=== PATIENT | female | born 1935 | race Caucasian/White ===

== ENCOUNTER → 2019-11-11 | Outpatient (CLI) | payer MEDICARE, BC ==
--- NOTE | 2019-11-11 17:05 | BD ---
EXAMINATION TYPE: Axial Bone Density DATE OF EXAM: 11/11/2019 COMPARISON: 2014 CLINICAL HISTORY: Height: 63 inches Weight: 133 FRAX RISK QUESTIONS: Alcohol (3 or more units per day): no Family History (Parent hip fracture): no Glucocorticoids (More than 3mos): no (Ex: prednisone, prednisolone, methylprednisolone, dexamethasone, and hydrocortisone). History of Fracture in Adulthood: yes Secondary Osteoporosis: 1. Type 1 Diabetes: no 2. Hyperthyroidism: unsure 3. Menopause before 45: no 4. Malnutrition: no 5. Chronic liver disease: no Rheumatoid Arthritis: no Current Tobacco Use: no RISK FACTORS HISTORY OF: Family History of Osteoporosis: unsure Active: yes Diet low in dairy products/other sources of calcium: somewhat Postmenopausal woman: yes Take estrogen and/or progesterone medications: no Lost more than 2 inches in height since high school: no Frequent falls: no Poor Health: no Hyperparathyroidism: no Adrenal Insufficiency: no MEDICATIONS: Prednisone or other steroids: no Thyroid Medications: yes Which medication: Levothyroxine How Long: since about 2013 Osteoporosis Medications: no Additional Medications: calcium , vitamin D, blood pressure meds, cholesterol med Additional History: history colon CA about 4 years ago EXAM MEASUREMENTS: Bone mineral densitometry was performed using the [employer]. Bone mineral density as measured about the Lumbar spine is: ----- L1-L4(G/cm2): 0.999 T Score Values are as follows: ----- L2: -2.0 ----- L3: -1.5 ----- L4: -1.1 ----- L1-L4: -1.5 Bone mineral density has: Decreased -7.7% since study of: 01/18/2015 Bone mineral density about the R hip (g/cm2): 0.918 Bone mineral density about the L hip (g/cm2): 0.768 T Score values are as follows: -----R Neck: -0.9 -----L Neck: -1.9 -----R Total: -1.7 -----L Total: -2.0 Bone mineral density has: Decreased -8.2% since study of: 01/18/2015 IMPRESSION: Osteopenia (T Score between -2.5 and -1). There is slightly increased risk of fracture and the patient may be considered for treatment. Re-Screen 2-5 years. NOTE: T-SCORE=SD OF THE YOUNG ADULT MEAN.
== END | disposition home or self-care (01) ==
LOC: RADBDWWP 12:29
PROVIDERS: ATTEND Internal Medicine
DX: M85.80 Other specified disorders of bone density and structure, unspecified site (principal)
CPT/HCPCS: 77080

== ENCOUNTER 2022-10-07 17:47 | Inpatient (IN) | payer MEDICARE, BC ==
--- NOTE | 2022-10-07 20:35 | ED ---
Back Pain [facility] - General Chief Complaint: Back Pain/Injury Stated Complaint: Back Pain Time Seen by Provider: 10/07/22 20:19 Source: patient, family, RN notes reviewed, old records reviewed Limitations: no limitations - History of Present Illness Initial Comments: This is a nontoxic-appearing 87-year-old female, alert and oriented 4, presents to the emergency room with family complaining of worsening lower back pain and inability to ambulate. Patient states back pain started in August and she has seen her doctor. She is currently on a steroid taper. She also seen orthopedic associates this week Saturday had x-rays, told degenerative disc disease. Family states that today she is having increased pain and unable to walk or stand. She is having urge incontinence. Denies any bowel incontinence. No fevers. No falls, trauma or injury. She does have a history of hypertension, and osteopenia. MD Complaint: back pain -: month(s) (3) Similar Symptoms Previously: Yes Radiation: none Severity scale (1-10): 8 Quality: aching Consistency: constant Improves With: none Worsens With: walking Associated Symptoms: denies other symptoms Treatments Prior to Arrival: other (X-ray and steroids) - Related Data Home Medications Medication Instructions Recorded Confirmed Ascorbic Acid [Vitamin C] 500 mg PO DAILY 01/12/16 10/07/22 Calcium Carbonate/Vitamin D3 1 tab PO DAILY 01/12/16 10/07/22 [Calcium 600 + Vit D Tablet] Enalapril/Hydrochlorothiazide 1 tab PO DAILY 01/12/16 10/07/22 [Vaseretic 10-25 mg] Levothyroxine Sodium [Synthroid] 25 mcg PO DAILY 01/12/16 10/07/22 Potassium Chloride ER [K-Dur 10] 10 meq PO BID-W/MEALS 01/12/16 10/07/22 Pravastatin Sodium [Pravachol] 40 mg PO DAILY 01/12/16 10/07/22 Verapamil HCl [Verapamil ER] 240 mg PO DAILY 01/12/16 10/07/22 Cholecalciferol [Vitamin D3 (25 50 mcg PO DAILY 10/07/22 10/07/22 Mcg = 1000 Iu)] methylPREDNISolone [Medrol Dose See Taper PO DIRECTED 10/07/22 10/07/22 Pack] Allergies Allergy/AdvReac Type Severity Reaction Status Date / Time No Known Allergies Allergy Verified 10/07/22 21:35 Review of Systems ROS Statement: Those systems with pertinent positive or pertinent negative responses have been documented in the HPI. ROS Other: All systems not noted in ROS Statement are negative. Past Medical History Past Medical History: GERD/Reflux, Hyperlipidemia, Hypertension, Skin Disorder, Thyroid Disorder Additional Past Medical History / Comment(s): anemia, occ "fast heartbeat", psoriasis, History of Any Multi-Drug Resistant Organisms: None Reported Past Surgical History: Breast Surgery, Tubal Ligation Additional Past Surgical History / Comment(s): breast biopsy x 2, yolie cataracts Past Anesthesia/Blood Transfusion Reactions: No Reported Reaction Past Psychological History: No Psychological Hx Reported Smoking Status: Never smoker Past Alcohol Use History: Daily Past Drug Use History: None Reported - Past Family History Mother Family Medical History: No Reported History General Exam Limitations: no limitations General appearance: alert, in no apparent distress Head exam: Present: atraumatic Eye exam: Absent: scleral icterus, conjunctival injection, periorbital swelling Neck exam: Present: full ROM. Absent: tenderness, meningismus Respiratory exam: Absent: respiratory distress, accessory muscle use Cardiovascular Exam: Present: regular rate GI/Abdominal exam: Present: soft. Absent: distended, rigid Extremities exam: Present: full ROM, normal capillary refill. Absent: tender ness, pedal edema, joint swelling, calf tenderness Back exam: Present: tenderness (Lumbar sacral), paraspinal tenderness (Lumbar sacral), other (Patient is able to stand but unable to take a step without assistance). Absent: CVA tenderness (R), CVA tenderness (L), rash noted Neurological exam: Present: alert, oriented X3 Psychiatric exam: Present: normal affect, normal mood Skin exam: Present: warm, dry. Absent: cyanosis, diaphoretic, petechiae, pallor Course Vital Signs 10/07/22 10/07/22 10/07/22 17:56 22:15 23:12 Temperature 98 F 97.5 F L Pulse Rate 71 66 65 Respiratory 20 16 18 Rate Blood Pressure 196/97 186/85 170/90 O2 Sat by Pulse 96 95 96 Oximetry Medical Decision Making - Medical Decision Making She states had an x-ray this week Saturday that showed no evidence of fracture or degenerative disc disease per family. She does have osteopenia. She has bee n unable to ambulate today. Per family having difficulty standing and bearing her own weight. No recent falls. Sensation is intact. She does have full range of motion lower extremities. Pain with palpation of the sacrum. CT lumbar sacral spine interpreted by me shows no acute fracture. Radiologist interpretation is bilateral nondisplaced sacral fractures. No evidence of a lumbar spine fracture. Minimal degenerative first degree L4-L5 spondylolisthesis. No lumbar compression fracture. No lumbar paraspinal mass. Labs show leukocytosis however patient is on steroids. Urinalysis shows 52 white blood cells with occasional bacteria, negative for leukocyte esterase or nitrites. Patient has no dysuria will await culture to treat. Patient was given morphine for pain. No concern for cauda equina She will be admitted to Dr. Meadows with orthopedics placed on consult. Patient is agreeable to this plan of care. Vital signs are stable. Case discussed with Dr. Ojeda - Lab Data Result diagrams: 10/07/22 21:48 10/07/22 21:48 Lab Results 10/07/22 10/07/22 10/07/22 Range/Units 21:48 21:48 22:04 WBC 16.2 H (3.8-10.6) k/uL RBC 4.56 (3.80-5.40) m/uL Hgb 14.5 (11.4-16.0) gm/dL Hct 42.0 (34.0-46.0) % MCV 92.1 (80.0-100.0) fL MCH 31.9 (25.0-35.0) pg MCHC 34.6 (31.0-37.0) g/dL RDW 12.7 (11.5-15.5) % Plt Count 404 (150-450) k/uL MPV 6.9 Neutrophils % 85 % Lymphocytes % 7 % Monocytes % 7 % Eosinophils % 1 % Basophils % 0 % Neutrophils # 13.7 H (1.3-7.7) k/uL Lymphocytes # 1.1 (1.0-4.8) k/uL Monocytes # 1.1 H (0-1.0) k/uL Eosinophils # 0.1 (0-0.7) k/uL Basophils # 0.0 (0-0.2) k/uL Sodium 131 L (137-145) mmol/L Potassium 4.8 (3.5-5.1) mmol/L Chloride 96 L (98-107) mmol/L Carbon Dioxide 28 (22-30) mmol/L Anion Gap 7 mmol/L BUN 23 H (7-17) mg/dL Creatinine 0.65 (0.52-1.04) mg/dL Est GFR (CKD-EPI)AfAm >90 (>60 ml/min/1.73 sqM) Est GFR (CKD-EPI)NonAf 80 (>60 ml/min/1.73 sqM) Glucose 129 H (74-99) mg/dL Calcium 9.6 (8.4-10.2) mg/dL Total Bilirubin 0.8 (0.2-1.3) mg/dL AST 33 (14-36) U/L ALT 23 (4-34) U/L Alkaline Phosphatase 177 H (38-126) U/L Total Protein 8.2 (6.3-8.2) g/dL Albumin 4.5 (3.5-5.0) g/dL Urine Color Light Yellow Urine Appearance Cloudy H (Clear) Urine pH 7.0 (5.0-8.0) Ur Specific [place] 1.015 (1.001-1.035) Urine Protein Trace H (Negative) Urine Glucose (UA) Negative (Negative) Urine Ketones Negative (Negative) Urine Blood Negative (Negative) Urine Nitrite Negative (Negative) Urine Bilirubin Negative (Negative) Urine Urobilinogen <2.0 (<2.0) mg/dL Ur Leukocyte Esterase Negative (Negative) Urine RBC >182 H (0-5) /hpf Urine WBC 52 H (0-5) /hpf Ur Squamous Epith Cells 2 (0-4) /hpf Urine Bacteria Occasional H (None) /hpf Urine Mucus Rare H (None) /hpf Disposition Clinical Impression: Inability to walk, Sacral fracture Narrative: Bilateral nondisplaced sacral fractures Disposition: ADMITTED IP TO THIS [facility] Referrals: Lamar Meadows MD [Primary Care Provider] - 1-2 days Decision Date: 10/07/22 Decision Time: 22:50
[2022-10-07] MEDS ORDERED: SODIUM CHLORIDE 0.9% 500 ML 500 ML IV STA (20:44)
[2022-10-07] MEDS ORDERED: MORPHINE SULFATE 4 MG/ML SYRINGE IV STA (20:44)
[2022-10-07 21:56] LABS: Basophils % (A) 0 %; Eosinophils # (A) 0.1 k/uL (0-0.7); Eosinophils % (A) 1 %; HGB 14.5 gm/dL (11.4-16.0); Lymphocytes # (A) 1.1 k/uL (1.0-4.8); Lymphocytes % (A) 7 %; MCH 31.9 pg (25.0-35.0); MCHC 34.6 g/dL (31.0-37.0); MCV 92.1 fL (80.0-100.0); Mean Platelet Volume 6.9; Monocytes # (A) 1.1 k/uL (0-1.0); Monocytes % (A) 7 %; Neutrophils # (A) 13.7 k/uL (1.3-7.7); Neutrophils % (A) 85 %; Platelet Count 404 k/uL (150-450); RBC 4.56 m/uL (3.80-5.40); RDW 12.7 % (11.5-15.5); WBC 16.2 k/uL (3.8-10.6)
[2022-10-07 22:17] LABS: ALT 23 U/L (4-34); AST 33 U/L (14-36); African American GFR (CKD) >90 (>60 ml/min/1.73 sqM); Albumin 4.5 g/dL (3.5-5.0); Alkaline Phosphatase 177 U/L (38-126); Anion Gap 7 mmol/L; Blood Urea Nitrogen 23 mg/dL (7-17); Calcium 9.6 mg/dL (8.4-10.2); Carbon Dioxide 28 mmol/L (22-30); Chloride 96 mmol/L (98-107); Glucose 129 mg/dL (74-99); Non-African American GFR(CKD) 80 (>60 ml/min/1.73 sqM); Sodium 131 mmol/L (137-145); Total Bilirubin 0.8 mg/dL (0.2-1.3); Total Protein 8.2 g/dL (6.3-8.2)
[2022-10-07 22:23] LABS: Potassium 4.8 mmol/L (3.5-5.1)
[2022-10-07 22:35] LABS: Appearance,Urine Cloudy (Clear); Bacteria,Urine Occasional /hpf; Bilirubin,Urine Negative (Negative); Blood,Urine Negative (Negative); Color,Urine Light Yellow; Glucose,Urine (UA) Negative (Negative); Ketones,Urine Negative (Negative); Leukocyte Esterase,Urine Negative (Negative); Mucus,Urine Rare /hpf; Nitrite,Urine Negative (Negative); Protein,Urine Trace (Negative); RBC,Urine >182 /hpf (0-5); Specific Gravity,Urine 1.015 (1.001-1.035); Squamous Epithelial Cell,Urine 2 /hpf (0-4); Urobilinogen,Urine <2.0 mg/dL (<2.0); WBC,Urine 52 /hpf (0-5)
--- NOTE | 2022-10-07 22:35 | CT ---
EXAMINATION TYPE: CT lumbar spine wo con DATE OF EXAM: 10/07/2022 COMPARISON: None HISTORY: back pain CT DLP: 595.9 mGycm Automated exposure control for dose reduction was used. Images obtained from T12 to S1 vertebra with no contrast. The lumbar vertebrae have fairly normal alignment. There is a minimal degenerative first degree L4-5 spondylolisthesis. Facet joints are intact. No lumbar compression fracture. Abdominal aorta is athero matous. No lumbar paraspinal mass. There are bilateral nondisplaced fractures of the lateral mass of the sacrum. There is a minimal sclerosis and these are consistent with healing fractures. Sacroiliac joint spaces are not widened. IMPRESSION: Bilateral nondisplaced sacral fractures. No evidence of a lumbar spine fracture.
[2022-10-07] MEDS ORDERED: NALOXONE 0.4 MG/ML 1 ML VIAL IV PRN (22:50)
[2022-10-08] MEDS: LEVOTHYROXINE 25 MCG TAB PO SCH (08:39)
[2022-10-08] MEDS: POTASSIUM CHLORIDE ER 10 MEQ TAB.ER.PRT PO SCH ×2 (08:39→16:55)
[2022-10-08] MEDS ORDERED: hydroCHLOROthiazide 25 MG TAB PO SCH (09:00)
[2022-10-08] MEDS: CALCIUM CARB-VIT D 500 MG-5 MCG TAB PO SCH (09:51)
[2022-10-08] MEDS: PRAVASTATIN SODIUM 40 MG TAB PO SCH (09:51)
[2022-10-08] MEDS: CHOLECALCIFEROL 25 MCG (1000 IU) TABLET PO SCH (09:51)
[2022-10-08] MEDS: ASCORBIC ACID 500 MG TAB PO SCH (09:52)
[2022-10-08] MEDS: VERAPAMIL SR 240 MG TABLET.ER PO SCH (09:52)
[2022-10-08] MEDS: lisinopriL 20 MG TAB PO SCH (09:52)
[2022-10-08] MEDS: hydroCHLOROthiazide 25 MG TAB PO SCH (10:29)
--- NOTE | 2022-10-08 13:49 | P.CNOR ---
History of Present Illness - [facility] Consult date: 10/08/22 History of present illness: This patient is an 87- year old female with a past medical history of hypertension, hyperlipidemia, GERD that presented to [facility] emergency department yesterday with complaints of increasing low back pain. The patient states there is no injury or falls. She has been experiencing progressive low back pain for about a month. She was recently evaluated at our office by Alejandro Herrera PA-C, x-rays were taken and the patient was placed on the oral steroid taper. The patient states that this steroid taper did not help her pain. Her pain continued over the past few days, therefore brought the patient to the emergency department. CT of the lumbar spine in the emergency department revealed bilateral nondisplaced sacral fractures. The patient was admitted to the care of Dr. Meadows, with a consult placed to orthopedic surgery. The patient was evaluated at bedside in the emergency department this morning. Her is bedside. Patient states she is experiencing moderate pain with any movement or attempted ambulation. She localizes the pain to the low back. She does have tingling in her toes, although this is chronic, patient states she does have neuropathy. Denies new numbness. She is experiencing urge incontinence, no bowel incontinence. No additional complaints. Past Medical History Past Medical History: GERD/Reflux, Hyperlipidemia, Hypertension, Skin Disorder, Thyroid Disorder Additional Past Medical History / Comment(s): anemia, occ "fast heartbeat", psoriasis, History of Any Multi-Drug Resistant Organisms: None Reported Past Surgical History: Breast Surgery, Tubal Ligation Additional Past Surgical History / Comment(s): breast biopsy x 2, yolie cataracts Past Anesthesia/Blood Transfusion Reactions: No Reported Reaction Past Psychological History: No Psychological Hx Reported Smoking Status: Never smoker Past Alcohol Use History: Daily Past Drug Use History: None Reported - Past Family History Mother Family Medical History: No Reported History Medications and Allergies Home Medications Medication Instructions Recorded Confirmed Type Ascorbic Acid [Vitamin C] 500 mg PO DAILY 01/12/16 10/07/22 History Calcium Carbonate/Vitamin D3 1 tab PO DAILY 01/12/16 10/07/22 History [Calcium 600 + Vit D Tablet] Enalapril/Hydrochlorothiazide 1 tab PO DAILY 01/12/16 10/07/22 History [Vaseretic 10-25 mg] Levothyroxine Sodium [Synthroid] 25 mcg PO DAILY 01/12/16 10/07/22 History Potassium Chloride ER [K-Dur 10] 10 meq PO BID-W/MEALS 01/12/16 10/07/22 History Pravastatin Sodium [Pravachol] 40 mg PO DAILY 01/12/16 10/07/22 History Verapamil HCl [Verapamil ER] 240 mg PO DAILY 01/12/16 10/07/22 History Cholecalciferol [Vitamin D3 (25 50 mcg PO DAILY 10/07/22 10/07/22 History Mcg = 1000 Iu)] methylPREDNISolone [Medrol Dose See Taper PO DIRECTED 10/07/22 10/07/22 History Pack] Allergies Allergy/AdvReac Type Severity Reaction Status Date / Time No Known Allergies Allergy Verified 10/07/22 21:35 Physical Examination On examination, patient is sitting up on the gurney in no apparent distress. She is alert and oriented 3. Her head appears normocephalic and atraumatic. Her breathing appears nonlabored. On inspection of her bilateral upper extremities, there are no obvious deformities or signs of trauma. On inspection of her bilateral lower extremities, no obvious deformities or signs of trauma. There is no pain with passive range of motion of the bilateral hips. Motor and sensory function is intact of the bilateral lower extremities. She has good strength and range of motion of her bilateral ankles and toes. Bilateral lower extremities warm and well perfused. Patient refuses back examination due to pain at this time. Results CT lumbar spine 10/07/22 reviewed. - Labs Labs: Abnormal Lab Results - Last 24 Hours (Table) 10/07/22 10/07/22 10/07/22 Range/Units 21:48 21:48 22:04 WBC 16.2 H (3.8-10.6) k/uL Neutrophils # 13.7 H (1.3-7.7) k/uL Monocytes # 1.1 H (0-1.0) k/uL Sodium 131 L (137-145) mmol/L Chloride 96 L (98-107) mmol/L BUN 23 H (7-17) mg/dL Glucose 129 H (74-99) mg/dL Alkaline Phosphatase 177 H (38-126) U/L Urine Appearance Cloudy H (Clear) Urine Protein Trace H (Negative) Urine RBC >182 H (0-5) /hpf Urine WBC 52 H (0-5) /hpf Urine Bacteria Occasional H (None) /hpf Urine Mucus Rare H (None) /hpf Microbiology - Last 24 Hours (Table) 10/07/22 22:04 Urine Culture - Preliminary Urine,Voided H & H 10/07/22 Range/Units 21:48 Hgb 14.5 (11.4-16.0) gm/dL Hct 42.0 (34.0-46.0) % Result Diagrams: 10/07/22 21:48 10/07/22 21:48 Assessment and Plan Assessment: Bilateral non-displaced sacral fractures Plan: - The clinical and imaging findings were discussed with the patient. The patient was discussed with Dr. Masterson. No surgical intervention is recommended at this time. Patient should remain non-weight bearing on bilateral lower extremities except for transfers. Recommend evaluation by physical therapy for transfers. - Pain management as needed. - Medical management per primary team. - We will follow patient closely as she remains inpatient and make recommendations as needed.
[2022-10-08] MEDS: ALPRAZolam 0.25 MG TAB PO PRN (15:30)
[2022-10-08] MEDS: oxyCODONE-APAP 5-325MG 1 EACH TAB PO PRN (16:55)
[2022-10-08] MEDS: DOCUSATE 100 MG CAP PO SCH (21:34)
[2022-10-09] MEDS: LEVOTHYROXINE 25 MCG TAB PO SCH (06:50)
[2022-10-09] MEDS: CALCIUM CARB-VIT D 500 MG-5 MCG TAB PO SCH (08:50)
[2022-10-09] MEDS: ENOXAPARIN 40 MG/0.4 ML SYRINGE SQ SCH (08:50)
[2022-10-09] MEDS: DOCUSATE 100 MG CAP PO SCH ×2 (08:50→21:27)
[2022-10-09] MEDS: ASCORBIC ACID 500 MG TAB PO SCH (08:50)
[2022-10-09] MEDS: CHOLECALCIFEROL 25 MCG (1000 IU) TABLET PO SCH (08:50)
[2022-10-09] MEDS: lisinopriL 20 MG TAB PO SCH (08:50)
[2022-10-09] MEDS: VERAPAMIL SR 240 MG TABLET.ER PO SCH (08:51)
[2022-10-09] MEDS: polyethylene glycoL 3350 17 GM POWD.PACK PO SCH (08:51)
[2022-10-09] MEDS: hydroCHLOROthiazide 25 MG TAB PO SCH (08:51)
[2022-10-09] MEDS: POTASSIUM CHLORIDE ER 10 MEQ TAB.ER.PRT PO SCH ×2 (08:51→18:06)
--- NOTE | 2022-10-09 12:51 | P.PN ---
Progress Note - Text Progress Note Date: 10/09/22 Orthopedic spine: History of present illness: Patient is a very pleasant 87-year-old female who is seen and examined at bedside for follow up evaluation for her known bilateral sacral fractures. She is currently sitting in a bedside chair. Her pain is currently medically controlled. Her pain has been controlled at rest. She does admit to lumbosacral pain with increased activities. She has had difficulty with mobilization. She has been able to utilize a walker with transfers. She denies any lower extremity radiculopathy or specific weakness bilaterally. She states approximately 3-4 weeks ago her purse fell off of her shoulder, which was heavy, and she quickly jerked to get it. She is unsure if he specifically caused her pain but states her pain has been ongoing since that time. She is currently admitted to medicine with plans for discharge to a rehabilitation facility at the time of discharge. Patient's other medical diagnoses include hyperlipidemia, hypertension, thyroid disorder. Physical exam: Patient is awake, alert, and oriented 3 Vital signs stable Good chest excursion with deep inspiration and expiration Examination of lumbosacral spine reveals skin is intact with no abrasions, lacerations, or bruises; no erythema, purulence or signs of infection Pain with palpation bilaterally over the proximal sacrum Dorsiflexion, plantarflexion, and extensor hallucis longus positive sustained bilaterally No signs or symptoms of DVT; no calf pain No pain with internal and external rotation of the hips bilaterally Neurovascularly intact Pertinent studies: CT of the lumbar spine taken on 10/07/2022: Evidence of bilateral nondisplaced fractures of the lateral mass of the sacrum with minimal sclerosis consistent with healing fracture; L4-5 slight spondylolisthesis; no vertebral body compression fracture Assessment: Bilateral nondisplaced sacral fractures Lumbosacral pain L4-5 slight spondylolisthesis Difficulty with mobilization due to sacral pain Hyperlipidemia Hypertension Thyroid disorder Plan: 1. We will currently planned to continue conservative treatment options in regards to her bilateral nondisplaced sacral fractures. Patient does continue to have pain at her fracture sites of the sacrum. At this time she should continue to remain nonweightbearing on the bilateral lower extremities except for transfers. We did discuss we're not planning for surgical intervention. We did discuss these fractures should heal with time. She may work with physical therapy for transfers. She may continue his medications as prescribed as needed for pain control. These pain medications are being managed by medicine. From an orthopedic spine standpoint, patient is clear for discharge. Patient may follow-up with José Miguel Cisneros PA-C or Dr. Jose Masterson at [facility] in 2-3 weeks following discharge. 2. Patient will continue to be seen and examined by medicine for her other medical diagnoses as well
[2022-10-09] MEDS: PRAVASTATIN SODIUM 40 MG TAB PO SCH (16:10)
[2022-10-09] MEDS: SODIUM CHLORIDE 0.9% 1,000 ML IV SCH (16:22)
[2022-10-09] MEDS: oxyCODONE-APAP 5-325MG 1 EACH TAB PO PRN (18:10)
[2022-10-10] MEDS: LEVOTHYROXINE 25 MCG TAB PO SCH (05:44)
[2022-10-10] MEDS: DOCUSATE 100 MG CAP PO SCH (08:28)
[2022-10-10] MEDS: ASCORBIC ACID 500 MG TAB PO SCH (08:28)
[2022-10-10] MEDS: CALCIUM CARB-VIT D 500 MG-5 MCG TAB PO SCH (08:28)
[2022-10-10] MEDS: polyethylene glycoL 3350 17 GM POWD.PACK PO SCH (08:28)
[2022-10-10] MEDS: lisinopriL 20 MG TAB PO SCH (08:28)
[2022-10-10] MEDS: hydroCHLOROthiazide 25 MG TAB PO SCH (08:28)
[2022-10-10] MEDS: PRAVASTATIN SODIUM 40 MG TAB PO SCH (08:28)
[2022-10-10] MEDS: POTASSIUM CHLORIDE ER 10 MEQ TAB.ER.PRT PO SCH ×2 (08:28→17:49)
[2022-10-10] MEDS: VERAPAMIL SR 240 MG TABLET.ER PO SCH (08:29)
[2022-10-10] MEDS: ENOXAPARIN 40 MG/0.4 ML SYRINGE SQ SCH (08:29)
[2022-10-10] MEDS: oxyCODONE-APAP 5-325MG 1 EACH TAB PO PRN ×2 (08:29→16:30)
[2022-10-10] MEDS: CHOLECALCIFEROL 25 MCG (1000 IU) TABLET PO SCH (08:29)
[2022-10-10 08:56] LABS: HCT 39.4 % (37.2-46.3); HGB 13.2 g/dL (12.0-15.0); MCH 31.6 pg (27.0-32.0); MCHC 33.5 g/dL (32.0-37.0); MCV 94.3 fL (80.0-97.0); Mean Platelet Volume 9.3 fL (9.5-12.2); NRBC Per 100 WBC 0 /100 WBCS (0.0-0.0); Platelet Count 366 X 10*3/uL (140-440); RBC 4.18 X 10*6/uL (4.10-5.20); RDW 12.8 % (11.5-14.5); WBC 10.72 X 10*3/uL (4.50-10.00)
[2022-10-10 09:19] LABS: African American GFR (CKD) 66.6 (60.0-200.0); Albumin 3.2 g/dL (3.8-4.9); Albumin/Globulin Ratio 1.23 (1.60-3.17); Anion Gap 8.6 mmol/L (10.00-18.00); BUN/Creat Ratio 24.67 Ratio (12.00-20.00); Blood Urea Nitrogen 22.2 mg/dL (9.0-27.0); Calcium 8.9 mg/dL (8.7-10.3); Carbon Dioxide 26.4 mmol/L (20.0-27.5); Globulin 2.6 g/dL (1.6-3.3); Non-African American GFR(CKD) 57.5 (60.0-200.0); Potassium 3.9 mmol/L (3.5-5.5); Total Bilirubin 0.6 mg/dL (0.30-1.20); Total Protein 5.8 g/dL (6.2-8.2)
[2022-10-10 11:59] VITALS: BP 144/78; PULSE 74; RESP 16; TEMP 97.3
[2022-10-10] MEDS: SODIUM CHLORIDE 0.9% 1,000 ML IV SCH (12:40)
[2022-10-10] MEDS: ALPRAZolam 0.25 MG TAB PO PRN (14:36)
--- NOTE | 2022-10-10 15:41 | P.HPIM ---
History of Present Illness H&P Date: 10/08/22 Chief Complaint: Sacral fracture inability to ambulate. HISTORY OF PRESENT ILLNESS: This is a 87-year-old female with a previous medical history significant for hypertension and hypertensive cardio vascular disease, hyperlipidemia, hypothyroidism, history of osteopenia, history of colon cancer, constipation, anxiety, hyperbilirubinemia, patient presented to the emergency department at [facility] because of increased lower back pain associated with inability day bleed and carries her activities of daily living, [facility], she has been given Medrol Dosepak without any relief of her pain, patient ended up coming to the ER for evaluation had an x-ray that did show evidence of bilateral nondisplaced sacral fracture she was seen in consultation by with katrin chris surgery was recommended for the patient be transferred to subacute Rehabilitation and she was started on Percocet for pain control. While she was in the hospital she was found to have elevated leukocyte in the urine, without evidence of urinary tract infection she was started on IV antibiotic in the form of Rocephin. ,REVIEW OF SYSTEMS: Constitutional: No documented fever, no chills, no night sweats. No weight change. No weakness, fatigue or lethargy. No daytime sleepiness. HEENT: No headache. No blurred vision or double vision, no loss of vision. No loss of Hearing, no ringing in the ears, no dizziness. No nasal drainage or co ngestion. No epistaxis. No sore throat. Lungs: No shortness of breath, no cough, no sputum production. No wheezing. Reports dyspnea with activity. Cardiovascular: No chest pain, no lower extremity edema. No palpitations. No paroxysmal nocturnal dyspnea. No orthopnea. No lightheadedness or dizziness. No syncopal episodes. Abdominal: Reports abdominal pain. No nausea, vomiting. No diarrhea. No constipation. No bloody or tarry stools reports loss of appetite. Genitourinary: No dysuria, increased frequency, urgency. No urinary retention. Musculoskeletal: No myalgias. positive for muscle weakness, positive for gait dysfunction, no frequent falls. positive for back pain. No neck pain. Integumentary: No wounds, no lesions. No rash or pruritus. No unusual bruising. No change in hair or nails. Neurologic: No aphasia. No facial droop. No change in mentation. No head injury. No headache. No paralysis. No paresthesia. Psychiatric: No depression. No anxiety. No mood swings. Endocrine: No abnormal blood sugars. No weight change. PAST MEDICAL HISTORY: Hypertension and hypertensive cardiovascular disease Hyperlipidemia. Hypothyroidism. Colon cancer. Hyperbilirubinemia. Osteoarthritis. Constipation. PAST SURGICAL HISTORY: right hemicolectomy February 2016 Colonoscopy 01/13/2016 Bilateral cataract surgery Breast biopsies 2. SOCIAL HISTORY: patient used to smoke about pack every day since she was 18-year-old and quit 25 years ago, she denies any alcohol ingestion, no drug abuse. She lives with her . FAMILY HISTORY: Father at age of 85 from old age, mother at age of 73 from angina and diabetes, patient had 4 brothers all one from prostate cancer to had CABG and 1 thoracic aortic aneurysm along with diabetes and gout along with Alzheimer dementia, patient has 3 sisters one of an no cause the other one is alive with heart failure patient has 2 sons alive and well, patient has one daughter alive and well PHYSICAL EXAMINATION: General: 87-year-old female laying down in bed in no apparent distress except for a back pain. HEENT: Head is atraumatic, normocephalic, pupils were equal round reactive to li ght and recommendation, extraocular muscle movement were intact, sclera nonicteric, conjunctivae were pale, mucous membranes of the mouth are somewhat dry. Neck: Supple, no JVP, normal carotid upstroke bilaterally, no lymphadenopathy. Chest: Decreased breath sounds at the bases, few rhonchi, no expiratory wheezes, no chest wall tenderness, no intercostal retractions. Heart: First heart sound is normal, second heart sounds normal there is systolic ejection murmur 2/6 located in the left sternal border. Abdomen: Soft, nontender, nondistended, positive bowel sounds, no hepatosplenomegaly. Extremities: There is no edema no calf tenderness DP +2 bilaterally. Neurologic examination: Patient is awake alert and oriented X3 cranial nerves II-12 appear grossly intact, muscle power were 5 out of 5 in upper extremities and 3 out of 5 in bilateral lower extremities, deep tendon reflexes normal yolie aterally. ASSESSMENT AND PLAN: 1. Bilateral nondisplaced sacral fracture. Continue current pain management, continue physical therapy and occupational therapy evaluation, orthopedic surgery consultation appreciated, patient will need to go to extended care facility for subacute rehabilitation as the patient is not able to carry her activities of daily living. 2. Possible UTI. Send the urine for culture, start the patient on Rocephin 1 g IV piggyback every 24 hours per he 3. Hypertension and hypertensive cardiovascular disease. Continue patient on verapamil 240 mg once every day, continue lisinopril 20 mg once every day, continue hydrochlorothiazide 25 mg once every day, monitor the patient blood pressure very closely. 4. Hyperlipidemia. Continue low-cholesterol diet, continue pravastatin 40 mg at bedtime, monitor the patient lipid panel, keep LDL 55-70. 5. Hypothyroidism. Continue Synthroid 25 g orally once every day, monitor the patient TSH and free T4 as an outpatient. 6. History of colon cancer status post right colectomy colectomy back in 2016. 7. Osteoarthritis. Continue with current pain management. 8. Constipation. Continue with current bowel care. 9. DVT prophylaxis. Lovenox 40 mg subcutaneously every 24 hours. 10. GI prophylaxis. Continue with Protonix 40 mg once every day. 11. Admitted to inpatient. Estimate a length of stay 2 midnights. 12. Full code. Past Medical History Past Medical History: GERD/Reflux, Hyperlipidemia, Hypertension, Skin Disorder, Thyroid Disorder Additional Past Medical History / Comment(s): anemia, occ "fast heartbeat", psoriasis, History of Any Multi-Drug Resistant Organisms: None Reported Past Surgical History: Breast Surgery, Tubal Ligation Additional Past Surgical History / Comment(s): breast biopsy x 2, yolie cataracts Past Anesthesia/Blood Transfusion Reactions: No Reported Reaction Past Psychological History: No Psychological Hx Reported Smoking Status: Never smoker Past Alcohol Use History: Daily Past Drug Use History: None Reported - Past Family History Mother Family Medical History: No Reported History Medications and Allergies Home Medications Medication Instructions Recorded Confirmed Type Ascorbic Acid [Vitamin C] 500 mg PO DAILY 01/12/16 10/07/22 History Calcium Carbonate/Vitamin D3 1 tab PO DAILY 01/12/16 10/07/22 History [Calcium 600-Vit D3 400 Tablet] Enalapril/Hydrochlorothiazide 1 tab PO DAILY 01/12/16 10/07/22 History [Vaseretic 10-25 mg] Levothyroxine Sodium [Synthroid] 25 mcg PO DAILY 01/12/16 10/07/22 History Potassium Chloride ER [K-Dur 10] 10 meq PO BID-W/MEALS 01/12/16 10/07/22 History Pravastatin Sodium [Pravachol] 40 mg PO DAILY 01/12/16 10/07/22 History Verapamil HCl [Verapamil ER] 240 mg PO DAILY 01/12/16 10/07/22 History Cholecalciferol [Vitamin D3 (25 50 mcg PO DAILY 10/07/22 10/07/22 History Mcg = 1000 Iu)] ALPRAZolam [Xanax] 0.25 mg PO BID PRN #6 tab 10/09/22 Rx Docusate [Colace] 100 mg PO BID cap 10/09/22 Rx oxyCODONE-APAP 5-325MG [Percocet 1 each PO Q6HR PRN #12 tab 10/09/22 Rx 5-325 mg] polyethylene glycoL 3350 [Miralax] 17 gm PO DAILY packet 10/09/22 Rx Enoxaparin [Lovenox] 40 mg SQ DAILY each 10/10/22 Rx Allergies Allergy/AdvReac Type Severity Reaction Status Date / Time No Known Allergies Allergy Verified 10/07/22 21:35 Physical Exam Vitals: Vital Signs Temp Pulse Resp BP Pulse Ox 10/08/22 04:00 97.8 F 68 18 134/79 95 10/08/22 00:00 97.9 F 61 16 159/62 95 10/07/22 23:12 65 18 170/90 96 10/07/22 22:15 97.5 F L 66 16 186/85 95 10/07/22 17:56 98 F 71 20 196/97 96 Intake and Output 10/07/22 10/08/22 10/08/22 22:59 06:59 14:59 Other: Weight 58.967 kg Results CBC & Chem 7: 10/10/22 04:51 10/10/22 04:51 Labs: Abnormal Lab Results - Last 24 Hours (Table) 10/07/22 10/07/22 10/07/22 Range/Units 21:48 21:48 22:04 WBC 16.2 H (3.8-10.6) k/uL Neutrophils # 13.7 H (1.3-7.7) k/uL Monocytes # 1.1 H (0-1.0) k/uL Sodium 131 L (137-145) mmol/L Chloride 96 L (98-107) mmol/L BUN 23 H (7-17) mg/dL Glucose 129 H (74-99) mg/dL Alkaline Phosphatase 177 H (38-126) U/L Urine Appearance Cloudy H (Clear) Urine Protein Trace H (Negative) Urine RBC >182 H (0-5) /hpf Urine WBC 52 H (0-5) /hpf Urine Bacteria Occasional H (None) /hpf Urine Mucus Rare H (None) /hpf
--- NOTE | 2022-10-10 15:43 | P.DS ---
Providers Date of admission: 10/08/22 00:29 Expected date of discharge: 10/10/22 Attending physician: Lamar Meadows Consults: 10/07/22 22:50 Consult Physician Routine Consulting Provider: Martin Kaminski Consult Reason/Comments: Bilateral nondisplaced sacral fractures; inability to ambulate Do you want consulting provider notified?: Yes, Notify in am Primary care physician: Lamar Meadows Hospital Course: HISTORY OF PRESENT ILLNESS: This is a 87-year-old female with a previous medical history significant for hypertension and hypertensive cardio vascular disease, h yperlipidemia, hypothyroidism, history of osteopenia, history of colon cancer, constipation, anxiety, hyperbilirubinemia, patient presented to the emergency department at [facility] because of increased lower back pain associated with inability day bleed and carries her activities of daily living, [facility], she has been given Medrol Dosepak without any relief of her pain, patient ended up coming to the ER for evaluation had an x-ray that did show evidence of bilateral nondisplaced sacral fracture she was seen in consultation by with katrin chris surgery was recommended for the patient be transferred to subacute Rehabilitation and she was started on Percocet for pain control. While she was in the hospital she was found to have elevated leukocyte in the urine, without evidence of urinary tract infection she was started on IV antibiotic in the form of Rocephin. 10/09: Patient is laying down in bed in no apparent distress, she is feeling b segundo today, she denies any chest pain or shortness breath, she has no abdominal pain, she did have a small bowel movement, she continues to have pain with ambulation, she has been getting Percocet every 4 hours as needed, will continue with that, she we'll continue with current bowel care, her urine culture showed contamination, discontinue Rocephin tomorrow morning, and the patient does not need any more antibiotic. Discharge diagnoses: 1. Bilateral nondisplaced sacral fracture. 2. No UTI. 3. Hypertension and hypertensive cardiovascular disease. 4. Hyperlipidemia. 5. Hypothyroidism. 6. History of colon cancer status post right hemicolectomy 2016 7. Hyperbilirubinemia 8. Osteoarthritis. 9. Medical debility 10. Gait dysfunction. Patient Condition at Discharge: Stable Plan - Discharge Summary New Discharge Prescriptions: New ALPRAZolam [Xanax] 0.25 mg PO BID PRN #6 tab PRN Reason: Anxiety Docusate [Colace] 100 mg PO BID cap polyethylene glycoL 3350 [Miralax] 17 gm PO DAILY packet Enoxaparin [Lovenox] 40 mg SQ DAILY each oxyCODONE-APAP 5-325MG [Percocet 5-325 mg] 1 each PO Q6HR PRN #12 tab PRN Reason: Severe Pain (Scale 7 To 10) Continue Verapamil HCl [Verapamil ER] 240 mg PO DAILY Enalapril/Hydrochlorothiazide [Vaseretic 10-25 mg] 1 tab PO DAILY Calcium Carbonate/Vitamin D3 [Calcium 600-Vit D3 400 Tablet] 1 tab PO DAILY Levothyroxine Sodium [Synthroid] 25 mcg PO DAILY Ascorbic Acid [Vitamin C] 500 mg PO DAILY Pravastatin Sodium [Pravachol] 40 mg PO DAILY Potassium Chloride ER [K-Dur 10] 10 meq PO BID-W/MEALS Cholecalciferol [Vitamin D3 (25 Mcg = 1000 Iu)] 50 mcg PO DAILY Discontinued methylPREDNISolone [Medrol Dose Pack] See Taper PO DIRECTED Discharge Medication List Ascorbic Acid [Vitamin C] 500 mg PO DAILY 01/12/16 [History] Calcium Carbonate/Vitamin D3 [Calcium 600-Vit D3 400 Tablet] 1 tab PO DAILY 01/12/16 [History] Enalapril/Hydrochlorothiazide [Vaseretic 10-25 mg] 1 tab PO DAILY 01/12/16 [History] Levothyroxine Sodium [Synthroid] 25 mcg PO DAILY 01/12/16 [History] Potassium Chloride ER [K-Dur 10] 10 meq PO BID-W/MEALS 01/12/16 [History] Pravastatin Sodium [Pravachol] 40 mg PO DAILY 01/12/16 [History] Verapamil HCl [Verapamil ER] 240 mg PO DAILY 01/12/16 [History] Cholecalciferol [Vitamin D3 (25 Mcg = 1000 Iu)] 50 mcg PO DAILY 10/07/22 [History] ALPRAZolam [Xanax] 0.25 mg PO BID PRN #6 tab 10/09/22 [Rx] Docusate [Colace] 100 mg PO BID cap 10/09/22 [Rx] oxyCODONE-APAP 5-325MG [Percocet 5-325 mg] 1 each PO Q6HR PRN #12 tab 10/09/22 [Rx] polyethylene glycoL 3350 [Miralax] 17 gm PO DAILY packet 10/09/22 [Rx] Enoxaparin [Lovenox] 40 mg SQ DAILY each 10/10/22 [Rx] Follow up Appointment(s)/Referral(s): Lamar Meadows MD [Primary Care Provider] - 1-2 days José Miguel Cisneros PAC [PHYSICIAN WOOD FINISHER APPRENTICE] - 2 Weeks (Patient may follow-up with José Miguel Cisneros PA-C or Dr. Jose Masterson at [facility] in 2-3 weeks following discharge. ) Patient Instructions/Handouts: Oxycodone/Acetaminophen (By mouth), Alprazolam (By mouth), Sacral Fracture (DC) Activity/Diet/Wound Care/Special Instructions: 1. Nonweightbearing on the bilateral lower extremities except for transfers 2. May work with physical therapy to increase transferability 3. Avoid bending, twisting, and lifting activities Discharge Disposition: TRANSFER TO SNF/ECF
--- NOTE | 2022-10-11 11:41 | P.PN ---
Subjective Progress Note Date: 10/09/22 HISTORY OF PRESENT ILLNESS: This is a 87-year-old female with a previous medical history signi ficant for hypertension and hypertensive cardio vascular disease, hyperlipidemia, hypothyroidism, history of osteopenia, history of colon cancer, constipation, anxiety, hyperbilirubinemia, patient presented to the emergency department at [facility] because of increased lower back pain associated with inability day bleed and carries her activities of daily living, patient [facility], she has been given Medrol Dosepak without any relief of her pain, patient ended up coming to the ER for evaluation had an x-ray that did show evidence of bilateral nondisplaced sacral fracture she was seen in consultation by with katrin chris surgery was recommended for the patient be transferred to subacute Rehabilitation and she was started on Percocet for pain control. While she was in the hospital she was found to have elevated leukocyte in the urine, without evidence of urinary tract infection she was started on IV antibiotic in the form of Rocephin. Patient remains afebrile, heart rate 77, blood pressure 133/76, pulse ox 96% on room air. Repeat blood work will be ordered for tomorrow. Urine culture has been finalized with skin sofía. Patient will continue on ceftriaxone IV for urinary tract infection. Patient states that she didn't eat this morning with breakfast and not drinking very much. IV fluids will be started. Patient has been seen seen by orthopedic spine with recommendations for conservative management. There is no plan for surgical intervention. Patient is to remain nonweightbearing on the bilateral lower extremities except for transfers. Physical therapy has recommended subacute rehab. Family is planning on [facility] or [facility]. REVIEW OF SYSTEMS: Constitutional: No documented fever, no chills, no night sweats. No weight change. No weakness, fatigue or lethargy. No daytime sleepiness. HEENT: No headache. No blurred vision or double vision, no loss of vision. No loss of Hearing, no ringing in the ears, no dizziness. No nasal drainage or congestion. No epistaxis. No sore throat. Lungs: No shortness of breath, no cough, no sputum production. No wheezing. Reports dyspnea with activity. Cardiovascular: No chest pain, no lower extremity edema. No palpitations. No paroxysmal nocturnal dyspnea. No orthopnea. No lightheadedness or dizziness. No syncopal episodes. Abdominal: Reports abdominal pain. No nausea, vomiting. No diarrhea. No constipation. No bloody or tarry stools reports loss of appetite. Genitourinary: No dysuria, increased frequency, urgency. No urinary retention. Musculoskeletal: No myalgias. positive for muscle weakness, positive for gait dysfunction, no frequent falls. positive for back pain. No neck pain. Integumentary: No wounds, no lesions. No rash or pruritus. No unusual bruising. No change in hair or nails. Neurologic: No aphasia. No facial droop. No change in mentation. No head injury. No headache. No paralysis. No paresthesia. Psychiatric: No depression. No anxiety. No mood swings. Endocrine: No abnormal blood sugars. No weight change. PHYSICAL EXAMINATION: General: 87-year-old female laying down in bed in no apparent dist ress except for a back pain. HEENT: Head is atraumatic, normocephalic, pupils were equal round reactive to light and recommendation, extraocular muscle movement were intact, sclera nonicteric, conjunctivae were pale, mucous membranes of the mouth are somewhat dry. Neck: Supple, no JVP, normal carotid upstroke bilaterally, no lymphadenopathy. Chest: Decreased breath sounds at the bases, few rhonchi, no expiratory wheezes, no chest wall tenderness, no intercostal retractions. Heart: First heart sound is normal, second heart sounds normal there is systolic ejection murmur 2/6 located in the left sternal border. Abdomen: Soft, nontender, nondistended, positive bowel sounds, no hepatosplenomegaly. Extremities: There is no edema no calf tenderness DP +2 bilaterally. Neurologic examination: Patient is awake alert and oriented X3 cranial nerves II-12 appear grossly intact, muscle power were 5 out of 5 in upper extremities and 3 out of 5 in bilateral lower extremities, deep tendon reflexes normal bilaterally. ASSESSMENT AND PLAN: 1. Bilateral nondisplaced sacral fracture. Continue current pain management, continue physical therapy and occupational therapy evaluation, orthopedic surge ry consultation appreciated, patient will need to go to extended care facility for subacute rehabilitation as the patient is not able to carry her activities of daily living. 2. Possible UTI. Urine culture showing pa showing normal sofía, continue patient on Rocephin 1 g IV piggyback every 24 hours per he 3. Hypertension and hypertensive cardiovascular disease. Continue patient on verapamil 240 mg once every day, continue lisinopril 20 mg once every day, continue hydrochlorothiazide 25 mg once every day, monitor the patient blood pressure very closely. 4. Hyperlipidemia. Continue low-cholesterol diet, continue pravastatin 40 mg at bedtime, monitor the patient lipid panel, keep LDL 55-70. 5. Hypothyroidism. Continue Synthroid 25 g orally once every day, monitor the patient TSH and free T4 as an outpatient. 6. History of colon cancer status post right colectomy colectomy back in 2016. 7. Osteoarthritis. Continue with current pain management. 8. Constipation. Continue with current bowel care. 9. DVT prophylaxis. Lovenox 40 mg subcutaneously every 24 hours. 10. GI prophylaxis. Continue with Protonix 40 mg once every day. 11. Full code. Discharge plan: Subacute rehab Impression and plan of care have been directed as dictated by the signing physician. Flory Galaviz nurse practitioner acting as scribe for signing physician. Objective - Vital Signs Vital signs: Vital Signs Temp 98 F 10/09/22 11:10 Pulse 77 10/09/22 11:10 Resp 17 10/09/22 11:10 BP 133/76 10/09/22 11:10 Pulse Ox 96 10/09/22 11:10 FiO2 Intake & Output 10/08/22 10/09/22 10/09/22 18:59 06:59 18:59 Output Total 950 Balance -950 Weight 58.967 kg Output: Urine 950 Other: Voiding Method External Catheter External Catheter External Catheter - Labs CBC & Chem 7: 10/10/22 04:51 10/10/22 04:51 Labs: Microbiology - Last 24 Hours (Table) 10/07/22 22:04 Urine Culture - Final Urine,Voided
== END 2022-10-10 18:42 | DRG 552 ==
LOC: SUPCPDRO 17:47 → EC 17:47 → 4SSUR 10-08 00:29 → 5NMEDONC 10-08 16:31
PROVIDERS: ADMIT Internal Medicine; ATTEND Internal Medicine
DX: S32.10XA Unspecified fracture of sacrum, initial encounter for closed fracture (principal); R17 Unspecified jaundice; E78.5 Hyperlipidemia, unspecified; Z20.822 Contact with and (suspected) exposure to COVID-19; E03.9 Hypothyroidism, unspecified; Z79.890 Hormone replacement therapy; G62.9 Polyneuropathy, unspecified; I10 Essential (primary) hypertension; K59.00 Constipation, unspecified; M19.90 Unspecified osteoarthritis, unspecified site; D64.9 Anemia, unspecified; L40.9 Psoriasis, unspecified; M89.8X8 Other specified disorders of bone, other site; N39.41 Urge incontinence; Z79.899 Other long term (current) drug therapy; Z85.038 Personal history of other malignant neoplasm of large intestine; Z87.891 Personal history of nicotine dependence; Z90.49 Acquired absence of other specified parts of digestive tract; Z98.51 Tubal ligation status; Z98.42 Cataract extraction status, left eye; Z98.41 Cataract extraction status, right eye
CPT/HCPCS: 36415; 72131; 80053; 81001; 85025; 85027; 87086; 87635; 96361; 96374; 99285

== ENCOUNTER 2022-10-17 16:45 | Inpatient (IN) | payer MEDICARE, BC ==
[2022-10-17] MEDS ORDERED: SODIUM CHLORIDE 0.9% 500 ML 500 ML IV ONE (17:12)
[2022-10-17 17:54] LABS: Basophils # (A) 0.1 k/uL (0-0.2); Basophils % (A) 1 %; Eosinophils # (A) 0.1 k/uL (0-0.7); Eosinophils % (A) 0 %; HCT 41.3 % (34.0-46.0); HGB 14.4 gm/dL (11.4-16.0); Lymphocytes # (A) 1.7 k/uL (1.0-4.8); Lymphocytes % (A) 15 %; MCH 32.1 pg (25.0-35.0); MCHC 34.9 g/dL (31.0-37.0); MCV 91.9 fL (80.0-100.0); Mean Platelet Volume 7.3; Monocytes # (A) 0.7 k/uL (0-1.0); Monocytes % (A) 6 %; Neutrophils % (A) 77 %; Platelet Count 455 k/uL (150-450); RBC 4.49 m/uL (3.80-5.40); RDW 12.3 % (11.5-15.5); WBC 11.7 k/uL (3.8-10.6)
[2022-10-17 18:03] LABS: Partial Thromboplastin Time 24.1 sec (22.0-30.0); Prothrombin Time 10.3 sec (9.0-12.0)
[2022-10-17 18:04] LABS: Albumin 3.9 g/dL (3.5-5.0); Calcium 9.3 mg/dL (8.4-10.2); Potassium 4.6 mmol/L (3.5-5.1); Total Bilirubin 0.6 mg/dL (0.2-1.3); Total Protein 7.2 g/dL (6.3-8.2)
--- NOTE | 2022-10-17 19:38 | ED ---
Altered Mental Status HPI - General Chief Complaint: Altered Mental Status Stated Complaint: increased confusion Time Seen by Provider: 10/17/22 16:59 Source: EMS Mode of arrival: EMS Limitations: altered mental status - History of Present Illness Initial Comments: Patient is an 86-year-old female presenting with chief complaint of altered mental status. Patient was brought in from [facility] via EMS. Family states that over the last 4 days she has been increasingly confused. He is also been increasingly weak. Patient was tested for UTI on Saturday which came back negative. Patient was recently admitted for sacral fractures, she was discharged to [facility] for rehabilitation. At baseline patient is A and O 2-3. Recently she is A&O 1 at most. This patient denies any chest pain, difficulty breathing, abdominal pain, nausea, vomiting, diarrhea, dysuria, flank pain, fever, chills, palpitations, numbness, tingling, headache, vision or hearing c hanges, dizziness. - Related Data Home Medications Medication Instructions Recorded Confirmed Ascorbic Acid [Vitamin C] 500 mg PO DAILY@1700 01/12/16 10/17/22 Calcium Carbonate/Vitamin D3 1 tab PO DAILY@17001/12/16 10/17/22 [Calcium 600-Vit D3 400 Tablet] Enalapril/Hydrochlorothiazide 1 tab PO DAILY@0800 01/12/16 10/17/22 [Vaseretic 10-25 mg] Levothyroxine Sodium [Synthroid] 25 mcg PO DAILY@0600 01/12/16 10/17/22 Potassium Chloride ER [K-Dur 10] 10 meq PO BID@0800,1700 01/12/16 10/17/22 Pravastatin Sodium [Pravachol] 40 mg PO DAILY@1700 01/12/16 10/17/22 Verapamil HCl [Verapamil ER] 240 mg PO DAILY@0800 01/12/16 10/17/22 Cholecalciferol [Vitamin D3 (25 50 mcg PO DAILY@0 10/07/22 10/17/22 Mcg = 1000 Iu)] Acetaminophen [Acetaminophen 8 hr] 650 mg PO Q4H PRN 10/17/22 10/17/22 Docusate [Colace] 100 mg PO BID@0800,1700 10/17/22 10/17/22 Ensure Enlive 120 - 237 ml PO TID@0800,1200,1700 10/17/22 10/17/22 Magnesium Hydroxide [Milk of 7,200 mg PO DAILY PRN 10/17/22 10/17/22 Magnesia] Mirtazapine 7.5 mg PO HS 10/17/22 10/17/22 Na Phos,M-B/Na Phos,Di-Ba [Fleet 133 ml RECTAL DAILY PRN 10/17/22 10/17/22 Adult] bisacodyL [Dulcolax] 10 mg RECTAL HS PRN 10/17/22 10/17/22 oxyCODONE-APAP 5-325MG [Percocet 1 tab PO Q6HR PRN 10/17/22 10/17/22 5-325 mg] polyethylene glycoL 3350 [Miralax] 17 gm PO DAILY@0800 10/17/22 10/17/22 Previous Rx's Medication Instructions Recorded ALPRAZolam [Xanax] 0.25 mg PO BID PRN #6 tab 10/09/22 Enoxaparin [Lovenox] 40 mg SQ DAILY each 10/10/22 Allergies Allergy/AdvReac Type Severity Reaction Status Date / Time No Known Allergies Allergy Verified 10/17/22 18:01 Review of Systems ROS Statement: Those systems with pertinent positive or pertinent negative responses have been documented in the HPI. ROS Other: All systems not noted in ROS Statement are negative. Past Medical History Past Medical History: GERD/Reflux, Hyperlipidemia, Hypertension, Skin Disorder, Thyroid Disorder Additional Past Medical History / Comment(s): anemia, occ "fast heartbeat", ps oriasis, History of Any Multi-Drug Resistant Organisms: None Reported Past Surgical History: Breast Surgery, Tubal Ligation Additional Past Surgical History / Comment(s): breast biopsy x 2, yolie cataracts Past Anesthesia/Blood Transfusion Reactions: No Reported Reaction Past Psychological History: No Psychological Hx Reported Smoking Status: Never smoker Past Alcohol Use History: Daily Past Drug Use History: None Reported - Past Family History Mother Family Medical History: No Reported History General Exam Limitations: altered mental status General appearance: alert, in no apparent distress, lethargic Head exam: Present: atraumatic, normocephalic, normal inspection Eye exam: Present: normal appearance, PERRL, EOMI. Absent: scleral icterus, conjunctival injection, periorbital swelling Pupils: Present: normal accommodation Neck exam: Present: normal inspection Respiratory exam: Present: normal lung sounds bilaterally. Absent: respiratory distress, wheezes, rales, rhonchi, stridor Cardiovascular Exam: Present: regular rate, normal rhythm, normal heart sounds. Absent: systolic murmur, diastolic murmur, rubs, gallop, clicks GI/Abdominal exam: Present: soft. Absent: distended, tenderness, guarding, rebound, rigid Neurological exam: Present: alert, altered, CN II-XII intact Psychiatric exam: Present: normal affect, normal mood Skin exam: Present: warm, dry, intact, normal color. Absent: rash Course Vital Signs 10/17/22 10/17/22 10/17/22 16:49 19:53 21:57 Temperature 97.2 F L Pulse Rate 81 79 86 Respiratory 18 Rate Blood Pressure 141/92 151/87 162/92 O2 Sat by Pulse 99 97 Oximetry Medical Decision Making - Medical Decision Making Patient is an 87-year-old female presenting with chief complaint of altered mental status. Patient is currently at [facility], family states that she has been having increased confusion over the last 4 days. On physical examination patient is altered, A and O 1. Too confused follow commands. Lab work showed WBC 11.7. Sodium 134 BUN 30. Creatinine 1.11 patient is receiving IV fluids for dehydration. Urine shows moderate bacteria, patient is given a dose of Rocephin here in the ER. Negative for influenza, RSV, and Covid. EKG shows no ischemic changes. Patient does not appear safe to be discharged due to level of AMS. I spoke with Dr. Meadows who accepted admission. Family is agreeable with this plan. I discussed this case with my attending Dr. García - Lab Data Result diagrams: 10/17/22 16:52 10/17/22 16:52 Lab Results 10/17/22 10/17/22 10/17/22 Range/Units 16:52 16:52 16:52 WBC 11.7 H (3.8-10.6) k/uL RBC 4.49 (3.80-5.40) m/uL Hgb 14.4 (11.4-16.0) gm/dL Hct 41.3 (34.0-46.0) % MCV 91.9 (80.0-100.0) fL MCH 32.1 (25.0-35.0) pg MCHC 34.9 (31.0-37.0) g/dL RDW 12.3 (11.5-15.5) % Plt Count 455 H (150-450) k/uL MPV 7.3 Neutrophils % 77 % Lymphocytes % 15 % Monocytes % 6 % Eosinophils % 0 % Basophils % 1 % Neutrophils # 9.0 H (1.3-7.7) k/uL Lymphocytes # 1.7 (1.0-4.8) k/uL Monocytes # 0.7 (0-1.0) k/uL Eosinophils # 0.1 (0-0.7) k/uL Basophils # 0.1 (0-0.2) k/uL PT 10.3 (9.0-12.0) sec INR 1.0 (<1.2) APTT 24.1 (22.0-30.0) sec Sodium 134 L (137-145) mmol/L Potassium 4.6 (3.5-5.1) mmol/L Chloride 100 (98-107) mmol/L Carbon Dioxide 28 (22-30) mmol/L Anion Gap 6 mmol/L BUN 33 H (7-17) mg/dL Creatinine 1.11 H (0.52-1.04) mg/dL Est GFR (CKD-EPI)AfAm 52 (>60 ml/min/1.73 sqM) Est GFR (CKD-EPI)NonAf 45 (>60 ml/min/1.73 sqM) Glucose 96 (74-99) mg/dL Calcium 9.3 (8.4-10.2) mg/dL Magnesium (1.6-2.3) mg/dL Total Bilirubin 0.6 (0.2-1.3) mg/dL AST 47 H (14-36) U/L ALT 34 (4-34) U/L Alkaline Phosphatase 241 H (38-126) U/L Ammonia (<30) umol/L Troponin I (0.000-0.034) ng/mL Total Protein 7.2 (6.3-8.2) g/dL Albumin 3.9 (3.5-5.0) g/dL Urine Color Urine Appearance (Clear) Urine pH (5.0-8.0) Ur Specific [place] (1.001-1.035) Urine Protein (Negative) Urine Glucose (UA) (Negative) Urine Ketones (Negative) Urine Blood (Negative) Urine Nitrite (Negative) Urine Bilirubin (Negative) Urine Urobilinogen (<2.0) mg/dL Ur Leukocyte Esterase (Negative) Urine RBC (0-5) /hpf Urine WBC (0-5) /hpf Urine Bacteria (None) /hpf Urine Mucus (None) /hpf Influenza Type A (PCR) (Not Detectd) Influenza Type B (PCR) (Not Detectd) RSV (PCR) (Not Detectd) SARS-CoV-2 (PCR) (Not Detectd) 10/17/22 10/17/22 10/17/22 Range/Units 16:52 16:52 16:52 WBC (3.8-10.6) k/uL RBC (3.80-5.40) m/uL Hgb (11.4-16.0) gm/dL Hct (34.0-46.0) % MCV (80.0-100.0) fL MCH (25.0-35.0) pg MCHC (31.0-37.0) g/dL RDW (11.5-15.5) % Plt Count (150-450) k/uL MPV Neutrophils % % Lymphocytes % % Monocytes % % Eosinophils % % Basophils % % Neutrophils # (1.3-7.7) k/uL Lymphocytes # (1.0-4.8) k/uL Monocytes # (0-1.0) k/uL Eosinophils # (0-0.7) k/uL Basophils # (0-0.2) k/uL PT (9.0-12.0) sec INR (<1.2) APTT (22.0-30.0) sec Sodium (137-145) mmol/L Potassium (3.5-5.1) mmol/L Chloride (98-107) mmol/L Carbon Dioxide (22-30) mmol/L Anion Gap mmol/L BUN (7-17) mg/dL Creatinine (0.52-1.04) mg/dL Est GFR (CKD-EPI)AfAm (>60 ml/min/1.73 sqM) Est GFR (CKD-EPI)NonAf (>60 ml/min/1.73 sqM) Glucose (74-99) mg/dL Calcium (8.4-10.2) mg/dL Magnesium 2.5 H (1.6-2.3) mg/dL Total Bilirubin (0.2-1.3) mg/dL AST (14-36) U/L ALT (4-34) U/L Alkaline Phosphatase (38-126) U/L Ammonia <9 (<30) umol/L Troponin I 0.031 (0.000-0.034) ng/mL Total Protein (6.3-8.2) g/dL Albumin (3.5-5.0) g/dL Urine Color Urine Appearance (Clear) Urine pH (5.0-8.0) Ur Specific [place] (1.001-1.035) Urine Protein (Negative) Urine Glucose (UA) (Negative) Urine Ketones (Negative) Urine Blood (Negative) Urine Nitrite (Negative) Urine Bilirubin (Negative) Urine Urobilinogen (<2.0) mg/dL Ur Leukocyte Esterase (Negative) Urine RBC (0-5) /hpf Urine WBC (0-5) /hpf Urine Bacteria (None) /hpf Urine Mucus (None) /hpf Influenza Type A (PCR) (Not Detectd) Influenza Type B (PCR) (Not Detectd) RSV (PCR) (Not Detectd) SARS-CoV-2 (PCR) (Not Detectd) 10/17/22 10/17/22 Range/Units 19:28 21:55 WBC (3.8-10.6) k/uL RBC (3.80-5.40) m/uL Hgb (11.4-16.0) gm/dL Hct (34.0-46.0) % MCV (80.0-100.0) fL MCH (25.0-35.0) pg MCHC (31.0-37.0) g/dL RDW (11.5-15.5) % Plt Count (150-450) k/uL MPV Neutrophils % % Lymphocytes % % Monocytes % % Eosinophils % % Basophils % % Neutrophils # (1.3-7.7) k/uL Lymphocytes # (1.0-4.8) k/uL Monocytes # (0-1.0) k/uL Eosinophils # (0-0.7) k/uL Basophils # (0-0.2) k/uL PT (9.0-12.0) sec INR (<1.2) APTT (22.0-30.0) sec Sodium (137-145) mmol/L Potassium (3.5-5.1) mmol/L Chloride (98-107) mmol/L Carbon Dioxide (22-30) mmol/L Anion Gap mmol/L BUN (7-17) mg/dL Creatinine (0.52-1.04) mg/dL Est GFR (CKD-EPI)AfAm (>60 ml/min/1.73 sqM) Est GFR (CKD-EPI)NonAf (>60 ml/min/1.73 sqM) Glucose (74-99) mg/dL Calcium (8.4-10.2) mg/dL Magnesium (1.6-2.3) mg/dL Total Bilirubin (0.2-1.3) mg/dL AST (14-36) U/L ALT (4-34) U/L Alkaline Phosphatase (38-126) U/L Ammonia (<30) umol/L Troponin I (0.000-0.034) ng/mL Total Protein (6.3-8.2) g/dL Albumin (3.5-5.0) g/dL Urine Color Yellow Urine Appearance Clear (Clear) Urine pH 6.5 (5.0-8.0) Ur Specific [place] 1.022 (1.001-1.035) Urine Protein Trace H (Negative) Urine Glucose (UA) Negative (Negative) Urine Ketones Trace H (Negative) Urine Blood Negative (Negative) Urine Nitrite Negative (Negative) Urine Bilirubin Negative (Negative) Urine Urobilinogen <2.0 (<2.0) mg/dL Ur Leukocyte Esterase Trace H (Negative) Urine RBC 1 (0-5) /hpf Urine WBC 4 (0-5) /hpf Urine Bacteria Moderate H (None) /hpf Urine Mucus Rare H (None) /hpf Influenza Type A (PCR) Not Detected (Not Detectd) Influenza Type B (PCR) Not Detected (Not Detectd) RSV (PCR) Not Detected (Not Detectd) SARS-CoV-2 (PCR) Not Detected (Not Detectd) Disposition Clinical Impression: AMS (altered mental status), Dehydration Disposition: ADMITTED IP TO THIS HOSP Condition: Fair Referrals: Lamar Meadows MD [Primary Care Provider] - 1-2 days Time of Disposition: 22:53 Decision to Admit Reason: Admit from EC Decision Date: 10/17/22 Decision Time: 22:53
[2022-10-17 19:59] LABS: Appearance,Urine Clear (Clear); Bacteria,Urine Moderate /hpf; Bilirubin,Urine Negative (Negative); Blood,Urine Negative (Negative); Color,Urine Yellow; Glucose,Urine (UA) Negative (Negative); Ketones,Urine Trace (Negative); Leukocyte Esterase,Urine Trace (Negative); Mucus,Urine Rare /hpf; Nitrite,Urine Negative (Negative); PH, Urine 6.5 (5.0-8.0); Protein,Urine Trace (Negative); RBC,Urine 1 /hpf (0-5); Specific Gravity,Urine 1.022 (1.001-1.035); Urobilinogen,Urine <2.0 mg/dL (<2.0); WBC,Urine 4 /hpf (0-5)
--- NOTE | 2022-10-17 20:18 | XR ---
EXAMINATION TYPE: XR chest 2V DATE OF EXAM: 10/17/2022 7:51 PM COMPARISON: None TECHNIQUE: XR chest 2V Frontal and lateral views of the chest. CLINICAL INDICATION:Female, 87 years old with history of altered mental status; FINDINGS: Lungs/Pleura: There is no evidence of pleural effusion, focal consolidation, or pneumothorax. 9 mm r ight upper lobe opacity. Pulmonary vascularity: Unremarkable. Heart/mediastinum: Cardiomediastinal silhouette is unremarkable. Musculoskeletal: No acute osseous pathology. IMPRESSION: 1. No acute cardiopulmonary disease/process. 2. Right upper lobe 9 mm pulmonary nodule. Consider nonemergent CT chest. 3.
--- NOTE | 2022-10-17 20:23 | CT ---
EXAMINATION TYPE: CT brain wo con CT DLP: 1123.4 mGycm, Automated exposure control for dose reduction was used. DATE OF EXAM: 10/17/2022 7:52 PM COMPARISON: None. CLINICAL INDICATION:Female, 87 years old with history of Altered mental status, Increased confusion TECHNIQUE: Brain: Axial CT images of the brain were obtained with coronal and sagittal reformats created and rev iewed. Contrast used: None. Oral contrast used: None. FINDINGS: Brain: Extra-axial spaces: No abnormal extra-axial fluid collections. Ventricular system: Within normal limits Cerebral parenchyma: Cerebral atrophy. No acute intraparenchymal hemorrhage or mass effect. The guy -white junction is well differentiated. Scattered hypoattenuating areas are seen within the white mat ter. Cerebellum: Unremarkable. Mass effect: No evidence of midline shift. Intracranial vasculature: Atherosclerotic calcifications of the intracranial vessels. Soft tissues: Normal. Calvarium/osseous structures: No depressed skull fracture. Paranasal sinuses and mastoid air cells: Mild scattered paranasal sinus disease. Visualized orbits: Senile calcific scleral plaques are present. IMPRESSION: 1. No acute intracranial process. 2. Nonspecific white matter changes, likely secondary to chronic small vessel ischemic disease.
[2022-10-17] MEDS ORDERED: cefTRIAXone IN SWFI 1,000 MG/10 ML SYRINGE IVP STA (21:53)
[2022-10-17] MEDS ORDERED: NALOXONE 0.4 MG/ML 1 ML VIAL IV PRN (22:46)
[2022-10-18] MEDS: SODIUM CHLORIDE 0.9% 1,000 ML IV SCH ×2 (00:02→17:51)
[2022-10-18 11:16] VITALS: BMI 20.9
[2022-10-18] MEDS ORDERED: MAGNESIUM HYDROXIDE 2,400 MG/10 ML CUP PO PRN (12:53)
[2022-10-18] MEDS: ACETAMINOPHEN TAB 325 MG TAB PO PRN (13:37)
--- NOTE | 2022-10-18 16:58 | P.HPIM ---
History of Present Illness H&P Date: 10/18/22 HISTORY OF PRESENT ILLNESS: This is a 87-year-old female with a previous medical history significant for hypertension and hypertensive cardio vascular disease, hyperlipidemia, hypothyroidism, history of osteopenia, history of colon cancer, constipation, anxiety, hyperbilirubinemia. Patient had a recent hospitalization following a fall and bilateral nondisplaced sacral fracture. She was seen by orthopedics and stabilized and discharged to [facility] for subacute rehab. Patient does have some chronic short-term memory loss but while at the long term, patient continues to have more confusion and was not participating in activities and not eating well. She was continuing to drink fluids. Her mental status continued to deteriorate at the long term it was decided patient come in to be further evaluated. WBC 11.7, heme lymph 14.4, platelet count 455. Sodium 134, potassium 4.6, chloride 100, CO2 28, BUN 33 creatinine 1.11. Blood sugar 96. INR 1.0. Total bilirubin 0.6, AST 47, ALT 34, alkaline phosphatase 241. Magnesium 2.5. Ammonia level less than 9. Troponin 0.031. Urinalysis was negative for infection with moderate bacteria. Influenza A, influenza B, RSV and Covid 19 not detected. Chest x-ray showed no acute pulmonary disease. Right upper lobe 9 mm pulmonary nodule. Consider non-emergent CAT scan of the chest. CAT scan of the brain revealed no acute intracranial process. REVIEW OF SYSTEMS: Constitutional: No documented fever, no chills, no night sweats. No weight change. Noted weakness and fatigue. No daytime sleepiness. HEENT: No headache. No blurred vision or double vision, no loss of vision. No loss of Hearing, no ringing in the ears, no dizziness. No nasal drainage or congestion. No epistaxis. No sore throat. Lungs: No shortness of breath, no cough, no sputum production. No wheezing. Reports dyspnea with activity. Cardiovascular: No chest pain, no lower extremity edema. No palpitations. No paroxysmal nocturnal dyspnea. No orthopnea. No lightheadedness or dizziness. No syncopal episodes. Abdominal: Reports abdominal pain. No nausea, vomiting. No diarrhea. No constipation. No bloody or tarry stools reports loss of appetite. Genitourinary: No dysuria, increased frequency, urgency. No urinary retention. Musculoskeletal: No myalgias. positive for muscle weakness, positive for gait dysfunction, no frequent falls. positive for back pain. No neck pain. Integumentary: No wounds, no lesions. No rash or pruritus. No unusual bruising. No change in hair or nails. Neurologic: No aphasia. No facial droop. Noted change in mentation. No head injury. No headache. No paralysis. No paresthesia. Psychiatric: No depression. No anxiety. No mood swings. Endocrine: No abnormal blood sugars. No weight change. PAST MEDICAL HISTORY: Hypertension and hypertensive cardiovascular disease Hyperlipidemia. Hypothyroidism. Colon cancer. Hyperbilirubinemia. Osteoarthritis. Constipation. PAST SURGICAL HISTORY: right hemicolectomy February 2016 Colonoscopy 01/13/2016 Bilateral cataract surgery Breast biopsies 2. SOCIAL HISTORY: patient used to smoke about pack every day since she was 18-year-old and quit 25 years ago, she denies any alcohol ingestion, no drug abuse. She lives with her . FAMILY HISTORY: Father at age of 85 from old age, mother at age of 73 from angina and diabetes, patient had 4 brothers all one from prostate cancer to had CABG and 1 thoracic aortic aneurysm along with diabetes and gout along with Alzheimer dementia, patient has 3 sisters one of an no cause the other one is alive with heart failure patient has 2 sons alive and well, patient has one daughter alive and well PHYSICAL EXAMINATION: General: 87-year-old female laying down in bed in no apparent distress. Patient's daughter and are at bedside. HEENT: Head is atraumatic, normocephalic, pupils were equal round reactive to light and recommendation, extraocular muscle movement were intact, sclera nonicteric, conjunctivae were pale, mucous membranes of the mouth are somewhat dry. Neck: Supple, no JVP, normal carotid upstroke bilaterally, no lymphadenopathy. Chest: Decreased breath sounds at the bases, few rhonchi, no expiratory wheezes, no chest wall tenderness, no intercostal retractions. Heart: First heart sound is normal, second heart sounds normal there is systolic ejection murmur 2/6 located in the left sternal border. Abdomen: Soft, nontender, nondistended, positive bowel sounds, no hepatosplenomegaly. Extremities: There is no edema no calf tenderness DP +2 bilaterally. Neurologic examination: Patient is awake alert and oriented to person cranial nerves II-12 appear grossly intact, muscle power were 5 out of 5 in upper extremities and 3 out of 5 in bilateral lower extremities, deep tendon reflexes normal bilaterally. ASSESSMENT AND PLAN: 1. Metabolic encephalopathy most likely multifactorial including medications, sacral fracture, hospitalization. Consult with neurology. Percocet, Xanax and Remeron placed on hold. Monitor patient's mental status closely. 2. Possible UTI has been ruled out with negative urine culture. Patient is status post 1 dose of Rocephin 1 g IV piggyback. 3. Bilateral nondisplaced sacral fracture. Patient was seen by orthopedics on the last hospitalization except for transfers and patient has a follow-up appointment next Saturday. PT and OT evaluation and treatment. 4. Hypertension and hypertensive cardiovascular disease. Continue patient on verapamil 240 mg once every day, continue lisinopril 20 mg once every day, continue hydrochlorothiazide 25 mg once every day, monitor the patient blood pressure very closely. 5. Hyperlipidemia. Continue low-cholesterol diet, continue pravastatin 40 mg at bedtime, monitor the patient lipid panel, keep LDL 55-70. 6. Hypothyroidism. Continue Synthroid 25 g orally once every day, monitor the patient TSH and free T4 as an outpatient. 7. History of colon cancer status post right colectomy colectomy back in 2016. 8. Osteoarthritis, generalized. Continue with current pain management. 9. Constipation. Continue with current bowel care. 10. DVT prophylaxis. Lovenox 40 mg subcutaneously every 24 hours. 11. GI prophylaxis. Continue with Protonix 40 mg once every day. Admitted to inpatient. Estimate a length of stay 2 midnights. Full code. Discharge plan: Return to [facility] for subacute rehab. Impression and plan of care have been directed as dictated by the signing physician. Flory Galaviz nurse practitioner acting as scribe for signing physician. Past Medical History Past Medical History: GERD/Reflux, Hyperlipidemia, Hypertension, Skin Disorder, Thyroid Disorder Additional Past Medical History / Comment(s): anemia, occ "fast heartbeat", psoriasis, History of Any Multi-Drug Resistant Organisms: None Reported Past Surgical History: Breast Surgery, Tubal Ligation Additional Past Surgical History / Comment(s): breast biopsy x 2, yolie cataracts Past Anesthesia/Blood Transfusion Reactions: No Reported Reaction Past Psychological History: No Psychological Hx Reported Smoking Status: Never smoker Past Alcohol Use History: Daily Additional Past Alcohol Use History / Comment(s): quit smoking 1997, smoked for about 40 yrs, small glass of wine most days Past Drug Use History: None Reported - Past Family History Mother Family Medical History: No Reported History Medications and Allergies Home Medications Medication Instructions Recorded Confirmed Type Ascorbic Acid [Vitamin C] 500 mg PO DAILY@1700 01/12/16 10/17/22 History Calcium Carbonate/Vitamin D3 1 tab PO DAILY@1700 01/12/16 10/17/22 History [Calcium 600-Vit D3 400 Tablet] Enalapril/Hydrochlorothiazide 1 tab PO DAILY@0800 01/12/16 10/17/22 History [Vaseretic 10-25 mg] Levothyroxine Sodium [Synthroid] 25 mcg PO DAILY@0600 01/12/16 10/17/22 History Potassium Chloride ER [K-Dur 10] 10 meq PO BID@0800,1700 01/12/16 10/17/22 History Pravastatin Sodium [Pravachol] 40 mg PO DAILY@1700 01/12/16 10/17/22 History Verapamil HCl [Verapamil ER] 240 mg PO DAILY@0800 01/12/16 10/17/22 History Cholecalciferol [Vitamin D3 (25 50 mcg PO DAILY@1700 10/07/22 10/17/22 History Mcg = 1000 Iu)] ALPRAZolam [Xanax] 0.25 mg PO BID PRN #6 tab 10/09/22 10/17/22 Rx Enoxaparin [Lovenox] 40 mg SQ DAILY each 10/10/22 10/17/22 Rx Acetaminophen [Acetaminophen 8 hr] 650 mg PO Q4H PRN 10/17/22 10/17/22 History Docusate [Colace] 100 mg PO BID@0800,1700 10/17/22 10/17/22 History Ensure Enlive 120 - 237 ml PO TID@0800,1200,1700 10/17/22 10/17/22 History Magnesium Hydroxide [Milk of 7,200 mg PO DAILY PRN 10/17/22 10/17/22 History Magnesia] Mirtazapine 7.5 mg PO HS 10/17/22 10/17/22 History Na Phos,M-B/Na Phos,Di-Ba [Fleet 133 ml RECTAL DAILY PRN 10/17/22 10/17/22 History Adult] bisacodyL [Dulcolax] 10 mg RECTAL HS PRN 10/17/22 10/17/22 History oxyCODONE-APAP 5-325MG [Percocet 1 tab PO Q6HR PRN 10/17/22 10/17/22 History 5-325 mg] polyethylene glycoL 3350 [Miralax] 17 gm PO DAILY@0800 10/17/22 10/17/22 History Allergies Allergy/AdvReac Type Severity Reaction Status Date / Time No Known Allergies Allergy Verified 10/17/22 18:01 Physical Exam Vitals: Vital Signs Temp Pulse Pulse Resp BP BP Pulse Ox 10/18/22 11:05 97.9 F 78 17 169/77 97 10/18/22 04:24 97.7 F 69 14 160/81 98 10/18/22 01:12 97.2 F L 83 13 153/85 98 10/18/22 00:30 98.2 F 88 16 162/89 98 10/18/22 00:00 86 14 152/100 98 10/17/22 23:00 85 14 119/102 97 10/17/22 22:00 80 16 162/92 98 10/17/22 21:57 86 162/92 97 10/17/22 21:56 86 14 162/92 97 10/17/22 19:53 79 151/87 10/17/22 16:49 97.2 F L 81 18 141/92 99 Intake and Output 10/17/22 10/18/22 10/18/22 22:59 06:59 14:59 Output Total 200 Balance -200 Output: Urine 200 Other: Voiding Method External Catheter # Voids 1 # Bowel Movements 1 Weight 58.967 kg 58.967 kg 58.967 kg Results CBC & Chem 7: 10/17/22 16:52 10/17/22 16:52 Labs: Abnormal Lab Results - Last 24 Hours (Table) 10/17/22 10/17/22 10/17/22 Range/Units 16:52 16:52 16:52 WBC 11.7 H (3.8-10.6) k/uL Plt Count 455 H (150-450) k/uL Neutrophils # 9.0 H (1.3-7.7) k/uL Sodium 134 L (137-145) mmol/L BUN 33 H (7-17) mg/dL Creatinine 1.11 H (0.52-1.04) mg/dL Magnesium 2.5 H (1.6-2.3) mg/dL AST 47 H (14-36) U/L Alkaline Phosphatase 241 H (38-126) U/L Urine Protein (Negative) Urine Ketones (Negative) Ur Leukocyte Esterase (Negative) Urine Bacteria (None) /hpf Urine Mucus (None) /hpf 10/17/22 Range/Units 19:28 WBC (3.8-10.6) k/uL Plt Count (150-450) k/uL Neutrophils # (1.3-7.7) k/uL Sodium (137-145) mmol/L BUN (7-17) mg/dL Creatinine (0.52-1.04) mg/dL Magnesium (1.6-2.3) mg/dL AST (14-36) U/L Alkaline Phosphatase (38-126) U/L Urine Protein Trace H (Negative) Urine Ketones Trace H (Negative) Ur Leukocyte Esterase Trace H (Negative) Urine Bacteria Moderate H (None) /hpf Urine Mucus Rare H (None) /hpf Thrombosis Risk Factor Assmnt - Choose All That Apply Any of the Below Risk Factors Present?: No Other Risk Factors: Yes Each Risk Factor Represents 3 Points: Age 75 years or older Other congenital or acquired thrombophilia - If yes, enter type in comment: Yes Each Risk Factor Represents 5 Points: Hip, pelvis, or leg fracture (< 1 month) Thrombosis Risk Factor Assessment Total Risk Factor Score: 8 Thrombosis Risk Factor Assessment Level: High Risk
[2022-10-18] MEDS ORDERED: PRAVASTATIN SODIUM 40 MG TAB PO SCH (17:00)
[2022-10-18] MEDS ORDERED: NON FORMULARY DRUG (Ensure Enlive 237 ML) PO SCH (17:00)
[2022-10-18] MEDS: POTASSIUM CHLORIDE ER 10 MEQ TAB.ER.PRT PO SCH (17:51)
[2022-10-18] MEDS: DOCUSATE 100 MG CAP PO SCH (17:51)
--- NOTE | 2022-10-18 20:33 | P.CNNES ---
History of Present Illness Consult date: 10/18/22 Requesting physician: Flory Galaviz Reason for Consult: Mental status change History of Present Illness: Patient is a 87-year-old female came to the hospital by ambulance yesterday at 4:45 PM. As per EMS flow sheet, it was mentioned that patient has altered mental status for the last few days, increase since Saturday per family. Patient has been ruled out for UTI. Patient has a known healed pelvic fracture and osteoporosis and needs positioning to be comfortable. Patient's blood pressure at the scene was 146/55, pulse rate 82 temperature 97.5, saturation 99% and blood sugar 112. CT head revealed no acute intracranial process. Nonspecific white matter changes, likely secondary to chronic small vessel ischemic disease. EKG shows sinus rhythm. Chest x-ray revealed no acute cardiopulmonary process. Right upper lobe 9 mm pulmonary nodule. Consider non-emergent CT chest. Patient's blood test shows WBC 11.7, normal hemoglobin, platelets 455. PT/PTT normal, sodium 134 potassium 4.6. UA and 33 creatinine 1.11. AST is mildly elevated 47, ALT 34. Troponin negative. UA negative. Influenza screen, RSV and lawson virus PCR negative. Patient's home medication includes verapamil 240 mg daily, enalapril/HCTZ, calcium, levothyroxine, Pravachol 40 mg, potassium, vitamin D, Lovenox 40 mg subcu daily, mirtazapine 7.5 mg at at bedtime, oxycodone/Percocet 1 tablet every 6 hours. Past Medical History Past Medical History: GERD/Reflux, Hyperlipidemia, Hypertension, Skin Disorder, Thyroid Disorder Additional Past Medical History / Comment(s): anemia, occ "fast heartbeat", psoriasis, History of Any Multi-Drug Resistant Organisms: None Reported Past Surgical History: Breast Surgery, Tubal Ligation Additional Past Surgical History / Comment(s): breast biopsy x 2, yolie cataracts Past Anesthesia/Blood Transfusion Reactions: No Reported Reaction Past Psychological History: No Psychological Hx Reported Smoking Status: Never smoker Past Alcohol Use History: Daily Additional Past Alcohol Use History / Comment(s): quit smoking 1997, smoked for about 40 yrs, small glass of wine most days Past Drug Use History: None Reported - Past Family History Mother Family Medical History: No Reported History Medications and Allergies Home Medications Medication Instructions Recorded Confirmed Type Ascorbic Acid [Vitamin C] 500 mg PO DAILY@1700 01/12/16 10/17/22 History Calcium Carbonate/Vitamin D3 1 tab PO DAILY@1700 01/12/16 10/17/22 History [Calcium 600-Vit D3 400 Tablet] Enalapril/Hydrochlorothiazide 1 tab PO DAILY@0800 01/12/16 10/17/22 History [Vaseretic 10-25 mg] Levothyroxine Sodium [Synthroid] 25 mcg PO DAILY@0600 01/12/16 10/17/22 History Potassium Chloride ER [K-Dur 10] 10 meq PO BID@0800,1700 01/12/16 10/17/22 History Pravastatin Sodium [Pravachol] 40 mg PO DAILY@1700 01/12/16 10/17/22 History Verapamil HCl [Verapamil ER] 240 mg PO DAILY@0800 01/12/16 10/17/22 History Cholecalciferol [Vitamin D3 (25 50 mcg PO DAILY@1700 10/07/22 10/17/22 History Mcg = 1000 Iu)] ALPRAZolam [Xanax] 0.25 mg PO BID PRN #6 tab 10/09/22 10/17/22 Rx Enoxaparin [Lovenox] 40 mg SQ DAILY each 10/10/22 10/17/22 Rx Acetaminophen [Acetaminophen 8 hr] 650 mg PO Q4H PRN 10/17/22 10/17/22 History Docusate [Colace] 100 mg PO BID@0800,1700 10/17/22 10/17/22 History Ensure Enlive 120 - 237 ml PO TID@0800,1200,1700 10/17/22 10/17/22 History Magnesium Hydroxide [Milk of 7,200 mg PO DAILY PRN 10/17/22 10/17/22 History Magnesia] Mirtazapine 7.5 mg PO HS 10/17/22 10/17/22 History Na Phos,M-B/Na Phos,Di-Ba [Fleet 133 ml RECTAL DAILY PRN 10/17/22 10/17/22 History Adult] bisacodyL [Dulcolax] 10 mg RECTAL HS PRN 10/17/22 10/17/22 History oxyCODONE-APAP 5-325MG [Percocet 1 tab PO Q6HR PRN 10/17/22 10/17/22 History 5-325 mg] polyethylene glycoL 3350 [Miralax] 17 gm PO DAILY@0800 10/17/22 10/17/22 History Allergies Allergy/AdvReac Type Severity Reaction Status Date / Time No Known Allergies Allergy Verified 10/17/22 18:01 Physical Examination - Vital Signs Vital Signs: Vital Signs Temp Pulse Pulse Resp BP BP Pulse Ox 10/18/22 11:05 97.9 F 78 17 169/77 97 10/18/22 04:24 97.7 F 69 14 160/81 98 10/18/22 01:12 97.2 F L 83 13 153/85 98 10/18/22 00:30 98.2 F 88 16 162/89 98 10/18/22 00:00 86 14 152/100 98 10/17/22 23:00 85 14 119/102 97 10/17/22 22:00 80 16 162/92 98 10/17/22 21:57 86 162/92 97 10/17/22 21:56 86 14 162/92 97 10/17/22 19:53 79 151/87 Intake and Output 10/18/22 10/18/22 10/18/22 06:59 14:59 22:59 Output Total 200 500 Balance -200 -500 Output: Urine 200 500 Other: Voiding Method External Catheter External Catheter # Voids 1 # Bowel Movements 1 Weight 58.967 kg 58.967 kg Results - Laboratory Findings CBC and BMP: 10/17/22 16:52 10/17/22 16:52 Abnormal Lab Findings: Abnormal Labs 10/17/22 10/17/22 10/17/22 16:52 16:52 16:52 WBC 11.7 H Plt Count 455 H Neutrophils # 9.0 H Sodium 134 L BUN 33 H Creatinine 1.11 H Magnesium 2.5 H AST 47 H Alkaline Phosphatase 241 H Urine Protein Urine Ketones Ur Leukocyte Esterase Urine Bacteria Urine Mucus 10/17/22 19:28 WBC Plt Count Neutrophils # Sodium BUN Creatinine Magnesium AST Alkaline Phosphatase Urine Protein Trace H Urine Ketones Trace H Ur Leukocyte Esterase Trace H Urine Bacteria Moderate H Urine Mucus Rare H Assessment and Plan Assessment: * Altered mental status, probably due to advancing dementia. Examination is no nfocal. * Very hard of hearing * Hypertension * Hyperlipidemia Plan: * Patient probably has dementia at least moderate degree. Start Aricept 5 mg daily. * Recommend patient follow up with neurologist as an outpatient to further optimize medication. * I will try to talk to family members to get collateral history. * Check B12, folate. TFTs are normal. * Neurologically, no other workup indicated. Thank you for the consult.
[2022-10-18] MEDS ORDERED: DONEPEZIL 5 MG TAB PO SCH (21:00)
[2022-10-19] MEDS: SODIUM CHLORIDE 0.9% 1,000 ML IV SCH (00:04)
[2022-10-19] MEDS: LEVOTHYROXINE 25 MCG TAB PO SCH ×2 (06:27→08:22)
[2022-10-19] MEDS: PANTOPRAZOLE 40 MG TABLET PO SCH ×2 (06:27→08:22)
[2022-10-19] MEDS ORDERED: lisinopriL 20 MG TAB PO SCH (08:00)
[2022-10-19] MEDS ORDERED: hydroCHLOROthiazide 25 MG TAB PO SCH (08:00)
[2022-10-19] MEDS ORDERED: VERAPAMIL SR 240 MG TABLET.ER PO SCH (08:00)
[2022-10-19] MEDS ORDERED: polyethylene glycoL 3350 17 GM POWD.PACK PO SCH (08:00)
[2022-10-19] MEDS: DOCUSATE 100 MG CAP PO SCH (08:22)
[2022-10-19] MEDS: POTASSIUM CHLORIDE ER 10 MEQ TAB.ER.PRT PO SCH (08:23)
--- NOTE | 2022-10-19 08:56 | P.DS ---
Providers Date of admission: 10/18/22 00:07 Expected date of discharge: 10/19/22 Attending physician: Lamar Meadows Consults: 10/18/22 13:12 Consult Physician Routine Consulting Provider: Abigail Ca Consult Reason/Comments: mental status change Do you want consulting provider notified?: Yes Primary care physician: Lamar Meadows Hospital Course: HISTORY OF PRESENT ILLNESS: This is a 87-year-old female with a previous medical history significant for hypertension and hypertensive cardio vascular disease, hyperlipidemia, hypothyroidism, history of osteopenia, history of colon cancer, constipation, anxiety, hyperbilirubinemia. Patient had a recent hospitalization following a fall and bilateral nondisplaced sacral fracture. She was seen by orthopedics and stabilized and discharged to [facility] for subacute rehab. Patient does have some chronic short-term memory loss but while at the long term, patient continues to have more confusion and was not participating in activities and not eating well. She was continuing to drink fluids. Her mental status continued to deteriorate at the long term it was decided patient come in to be further evaluated. WBC 11.7, heme lymph 14.4, platelet count 455. Sodium 134, potassium 4.6, chloride 100, CO2 28, BUN 33 creatinine 1.11. Blood sugar 96. INR 1.0. Total bilirubin 0.6, AST 47, ALT 34, alkaline phosphatase 241. Magnesium 2.5. Ammonia level less than 9. Troponin 0.031. Urinalysis was negative for infection with moderate bacteria. Influenza A, influenza B, RSV and Covid 19 not detected. Chest x-ray showed no acute pulmonary disease. Right upper lobe 9 mm pulmonary nodule. Consider non-emergent CAT scan of the chest. CAT scan of the brain revealed no acute intracranial process. 10/19: Patient has been seen by neurology and recommended starting Aricept for dementia and outpatient follow-up with neurology. Patient is awake and alert today. She is noted to have short-term memory deficit. Patient's daughter is at bedside and all questions answered. Vital signs have been stable. Patient will remain off Xanax, Percocet and Remeron. Patient will be discharged back to [facility] today once all arrangements are completed. Patient will need to keep orthopedic appointment that is scheduled for next week. DISCHARGE DIAGNOSES 1. Metabolic encephalopathy most likely multifactorial including medications, sacral fracture, hospitalization. 2. Possible UTI has been ruled out with negative urine culture. 3. Bilateral nondisplaced sacral fracture. 4. Hypertension and hypertensive cardiovascular disease. 5. Hyperlipidemia. 6. Hypothyroidism. 7. History of colon cancer status post right colectomy colectomy back in 2016. 8. Osteoarthritis, generalized. 9. Constipation. Discharge plan: Return to [facility] for subacute rehab. Greater than 35 minutes was utilized and coordinating patient's discharge. Impression and plan of care have been directed as dictated by the signing physician. Flory Galaviz nurse practitioner acting as scribe for signing physician. Patient Condition at Discharge: Stable Plan - Discharge Summary Discharge Rx Participant: Yes New Discharge Prescriptions: New Donepezil [Aricept] 5 mg PO HS tab Continue Verapamil HCl [Verapamil ER] 240 mg PO DAILY@0800 Enalapril/Hydrochlorothiazide [Vaseretic 10-25 mg] 1 tab PO DAILY@0800 Calcium Carbonate/Vitamin D3 [Calcium 600-Vit D3 400 Tablet] 1 tab PO DAILY@1700 Levothyroxine Sodium [Synthroid] 25 mcg PO DAILY@0600 Ascorbic Acid [Vitamin C] 500 mg PO DAILY@1700 Pravastatin Sodium [Pravachol] 40 mg PO DAILY@1700 Potassium Chloride ER [K-Dur 10] 10 meq PO BID@0800,1700 Cholecalciferol [Vitamin D3 (25 Mcg = 1000 Iu)] 50 mcg PO DAILY@1700 Enoxaparin [Lovenox] 40 mg SQ DAILY each Ensure Enlive 120 - 237 ml PO TID@0800,1200,1700 Acetaminophen [Acetaminophen 8 hr] 650 mg PO Q4H PRN PRN Reason: general discomfort Magnesium Hydroxide [Milk of Magnesia] 7,200 mg PO DAILY PRN PRN Reason: Constipation bisacodyL [Dulcolax] 10 mg RECTAL HS PRN PRN Reason: Constipation Docusate [Colace] 100 mg PO BID@0800,1700 Na Phos,M-B/Na Phos,Di-Ba [Fleet Adult] 133 ml RECTAL DAILY PRN PRN Reason: Constipation polyethylene glycoL 3350 [Miralax] 17 gm PO DAILY@0800 Discontinued ALPRAZolam [Xanax] 0.25 mg PO BID PRN #6 tab PRN Reason: Anxiety oxyCODONE-APAP 5-325MG [Percocet 5-325 mg] 1 tab PO Q6HR PRN PRN Reason: Severe Pain (Scale 7 To 10) Mirtazapine 7.5 mg PO HS Discharge Medication List Ascorbic Acid [Vitamin C] 500 mg PO DAILY@169901/12/16 [History] Calcium Carbonate/Vitamin D3 [Calcium 600-Vit D3 400 Tablet] 1 tab PO DAILY@17001/12/16 [History] Enalapril/Hydrochlorothiazide [Vaseretic 10-25 mg] 1 tab PO DAILY@0801/12/16 [History] Levothyroxine Sodium [Synthroid] 25 mcg PO DAILY@0601/12/16 [History] Potassium Chloride ER [K-Dur 10] 10 meq PO BID@0800,1700 01/12/16 [History] Pravastatin Sodium [Pravachol] 40 mg PO DAILY@169901/12/16 [History] Verapamil HCl [Verapamil ER] 240 mg PO DAILY@0801/12/16 [History] Cholecalciferol [Vitamin D3 (25 Mcg = 1000 Iu)] 50 mcg PO DAILY@169910/07/22 [History] Enoxaparin [Lovenox] 40 mg SQ DAILY each 10/10/22 [Rx] Acetaminophen [Acetaminophen 8 hr] 650 mg PO Q4H PRN 10/17/22 [History] Docusate [Colace] 100 mg PO BID@0800,1700 10/17/22 [History] Ensure Enlive 120 - 237 ml PO TID@0800,1200,1700 10/17/22 [History] Magnesium Hydroxide [Milk of Magnesia] 7,200 mg PO DAILY PRN 10/17/22 [History] Na Phos,M-B/Na Phos,Di-Ba [Fleet Adult] 133 ml RECTAL DAILY PRN 10/17/22 [History] bisacodyL [Dulcolax] 10 mg RECTAL HS PRN 10/17/22 [History] polyethylene glycoL 3350 [Miralax] 17 gm PO DAILY@0800 10/17/22 [History] Donepezil [Aricept] 5 mg PO HS tab 10/19/22 [Rx] Follow up Appointment(s)/Referral(s): Lamar Meadows MD [Primary Care Provider] - 1 Week (AT [facility]) Discharge Disposition: TRANSFER TO SNF/ECF
[2022-10-19] MEDS ORDERED: ENOXAPARIN 40 MG/0.4 ML SYRINGE SQ SCH (09:00)
[2022-10-19 12:36] VITALS: BP 123/78; PULSE 82; RESP 16; TEMP 98
[2022-10-19] MEDS: ACETAMINOPHEN TAB 325 MG TAB PO PRN ×2 (14:12→17:15)
== END 2022-10-19 17:30 | DRG 92 ==
LOC: EC 16:45 → 5NMEDONC 10-18 00:07 → OBSVTOIN 10-18 13:09
PROVIDERS: ADMIT Internal Medicine; ATTEND Internal Medicine
DX: G92.8 Other toxic encephalopathy (principal); S32.10XA Unspecified fracture of sacrum, initial encounter for closed fracture; T50.915A Adverse effect of multiple unspecified drugs, medicaments and biological substances, initial encounter; E03.9 Hypothyroidism, unspecified; E78.5 Hyperlipidemia, unspecified; E86.0 Dehydration; F03.90 Unspecified dementia, unspecified severity, without behavioral disturbance, psychotic disturbance, mood disturbance, and anxiety; H91.90 Unspecified hearing loss, unspecified ear; E80.6 Other disorders of bilirubin metabolism; I11.9 Hypertensive heart disease without heart failure; K59.00 Constipation, unspecified; M15.9 Polyosteoarthritis, unspecified; M81.0 Age-related osteoporosis without current pathological fracture; Z20.822 Contact with and (suspected) exposure to COVID-19; Z79.890 Hormone replacement therapy; Z79.899 Other long term (current) drug therapy; Z82.0 Family history of epilepsy and other diseases of the nervous system; Z85.038 Personal history of other malignant neoplasm of large intestine; Z87.891 Personal history of nicotine dependence; Z90.49 Acquired absence of other specified parts of digestive tract; L40.9 Psoriasis, unspecified; Z71.3 Dietary counseling and surveillance
CPT/HCPCS: 36415; 70450; 71046; 80053; 81001; 82140; 82607; 82746; 83735; 84484; 85025; 85027; 85610; 85730; 87635; 87636; 93005; 96361; 96374; 99285